=== PATIENT | female | born 1945 | race Caucasian/White ===

== ENCOUNTER → 2016-08-01 | Outpatient (CLI) | payer MEDICARE, OTHER ==
[~2016-08-01] MED LIST: ALBUAER3 IN; AMITRIP PO; ASPI-264 OR; CETI10CA PO; DONE10TA17 PO; FLUT250M2 INH; LORA-205 PO; LORA10CA7 OR; MICOCRE VA; MONT10TA23 OR; OMEG1CAP10 PO; SERT-135 PO; VITA100T3 PO; [UNRECOGNIZED DRUG - OTHER]
== END | disposition home or self-care (01) ==
LOC: Rad HDHVI 14:14
PROVIDERS: ATTEND Internal Medicine Cardiovascular Disease
DX: R06.02 Shortness of breath (principal)
CPT/HCPCS: 71020

== ENCOUNTER → 2017-04-14 | Outpatient (CLI) | payer MEDICARE, OTHER | END | disposition home or self-care (01) | LOC: Rad HDHVI 10:58 | PROVIDERS: ATTEND Internal Medicine Cardiovascular Disease | DX: I10 Essential (primary) hypertension (principal); J44.9 Chronic obstructive pulmonary disease, unspecified | CPT/HCPCS: 93306 ==

== ENCOUNTER → 2017-05-04 | Outpatient (CLI) | payer MEDICARE, OTHER ==
[~2017-05-04] VITALS: Ht 162.6 cm; Wt 93.0 kg
== END | disposition home or self-care (01) ==
LOC: Rad HDHVI 14:04
PROVIDERS: ATTEND Internal Medicine Cardiovascular Disease
DX: R07.89 Other chest pain (principal); R06.02 Shortness of breath
CPT/HCPCS: 78452; 93017; 96374; A9500

== ENCOUNTER → 2017-06-01 | Outpatient (CLI) | payer MEDICARE, OTHER ==
[2017-06-01 16:31] LABS: Urine Blood Negative /uL (Negative); Urine Specific Gravity 1.016 (1.001-1.035)
[2017-06-01 16:43] LABS: Basophils # (auto) 0 uL; Basophils % (auto) 0.3 % (0.0-2.0); Eosinophils # (auto) 0.1 uL; Eosinophils % (auto) 1.9 % (0.0-7.0); Hematocrit 43.1 % (36.0-46.0); Hemoglobin 14.8 g/dL (12.2-16.2); Lymphocytes % (auto) 17.9 % (10.0-50.0); Mean Corpuscular Hemoglobin 31.8 pg (28.0-32.0); Mean Corpuscular Hgb Conc. 34.3 g/dL (32.0-36.0); Mean Corpuscular Volume 92.9 fL (80.0-100.0); Monocytes # (auto) 0.5 uL; Monocytes % (auto) 8.2 % (0.0-12.0); Neutrophils # (auto) 4.2 uL; Neutrophils % (auto) 71.7 % (37.0-80.0); Nucleated Red Blood Cells % 0.2 %; Platelet Count (auto) 242 10^3/uL (140-450); Red Blood Cells 4.64 10^6/uL (4.0-5.20); Red Cell Distribution Width 13.2 % (11.8-14.3); White Blood Cell 5.8 10^3/uL (4.4-10.8)
[2017-06-01 16:45] LABS: Alanine Aminotransferase 27 U/L (13-56); Albumin 3.7 g/dL (3.4-5.0); Alkaline Phosphatase 109 U/L (45-117); Anion Gap 6 (5-15); Aspartate Aminotransferase 21 U/L (15-37); Bilirubin, Direct < 0.1 mg/dL (0-0.2); Bilirubin, Total 0.3 mg/dL (0.2-1.0); Blood Urea Nitrogen 16 mg/dL (7-18); Calcium 9.3 mg/dL (8.5-10.1); Carbon Dioxide 31 mmol/L (21-32); Chloride 104 mmol/L (98-107); Cholesterol 205 mg/dL (< 200); GFR African American 90 mL/min; GFR Non-African American 75 mL/min; Glucose 114 mg/dL (74-106); HDL Cholesterol 52 mg/dL (40-59); LDL Cholesterol 129 mg/dL (< 100); Potassium 3.7 mmol/L (3.5-5.1); Sodium 141 mmol/L (136-145); Total Protein 7.6 g/dL (6.4-8.2); Triglycerides 117 mg/dL (< 150)
== END | disposition home or self-care (01) ==
LOC: LAB 13:09
PROVIDERS: ATTEND Internal Medicine Cardiovascular Disease
DX: E78.00 Pure hypercholesterolemia, unspecified (principal); D64.9 Anemia, unspecified; I10 Essential (primary) hypertension; E11.9 Type 2 diabetes mellitus without complications; E03.9 Hypothyroidism, unspecified; E55.9 Vitamin D deficiency, unspecified; K74.1 Hepatic sclerosis; N39.0 Urinary tract infection, site not specified
CPT/HCPCS: 36415; 80048; 80061; 80076; 81003; 82306; 83036; 84443; 85025

== ENCOUNTER 2017-11-08 11:38 | Inpatient (IN) | payer MEDICARE, OTHER ==
[~2017-11-08] VITALS: Ht 170.2 cm; Wt 98.8 kg
[~2017-11-08 11:38] MED LIST changes: -LORA10CA7 OR; +LORA10CA7 PO
[2017-11-08 12:20] LABS: Basophils # (auto) 0 uL; Basophils % (auto) 0.3 % (0.0-2.0); Eosinophils # (auto) 0.1 uL; Eosinophils % (auto) 2.2 % (0.0-7.0); Hematocrit 41.8 % (36.0-46.0); Lymphocytes # (auto) 1.5 uL; Lymphocytes % (auto) 31.1 % (10.0-50.0); Mean Corpuscular Hemoglobin 31.3 pg (28.0-32.0); Mean Corpuscular Hgb Conc. 33.6 g/dL (32.0-36.0); Mean Corpuscular Volume 93.3 fL (80.0-100.0); Monocytes # (auto) 0.4 uL; Monocytes % (auto) 8.6 % (0.0-12.0); Neutrophils # (auto) 2.9 uL; Neutrophils % (auto) 57.8 % (37.0-80.0); Nucleated Red Blood Cells % 0.1 %; Platelet Count (auto) 242 10^3/uL (140-450); Red Blood Cells 4.49 10^6/uL (4.0-5.20); Red Cell Distribution Width 13.4 % (11.8-14.3)
[2017-11-08 12:43] LABS: Albumin 3.4 g/dL (3.4-5.0); Anion Gap 9 (5-15); BUN/Creatinine Ratio 21.2; Blood Urea Nitrogen 18 mg/dL (7-18); Calcium 8.2 mg/dL (8.5-10.1); Carbon Dioxide 26 mmol/L (21-32); Chloride 104 mmol/L (98-107); GFR African American 84 mL/min; GFR Non-African American 70 mL/min; Glucose 95 mg/dL (74-106); Potassium 3.3 mmol/L (3.5-5.1); Sodium 139 mmol/L (136-145)
[2017-11-08 12:48] LABS: Alanine Aminotransferase 24 U/L (13-56); Alkaline Phosphatase 77 U/L (45-117); Aspartate Aminotransferase 21 U/L (15-37); Bilirubin, Total 0.4 mg/dL (0.2-1.0)
[2017-11-08] MEDS ORDERED: IPRATROPIUM BROM 0.5 MG/2.5ML INH SOL HHN ONE (13:00)
[2017-11-08] MEDS ORDERED: ALBUTEROL SULF 2.5 MG/0.5ML(0.5%) NEB SOLN HHN ONE (13:00)
[2017-11-08] MEDS ORDERED: methylPREDNISolone SOD SUCC 125 MG/2 ML VL IV ONE (13:00)
[2017-11-08] MEDS: DOXYCYCLINE 100MG/250ML 250 ML IV SCH (14:00)
[2017-11-08] MEDS: SODIUM CHLORIDE 0.9% 1,000 ML IV SCH (14:48)
[2017-11-08] MEDS ORDERED: PROMETHAZINE HCL 25 MG/ML 1ML IV PRN (15:00)
[2017-11-08] MEDS ORDERED: LACTULOSE 20Gm/30ML SOLN PO PRN (15:00)
[2017-11-08] MEDS ORDERED: NITROGLYCERIN 0.4 MG SL TAB SL PRN (15:00)
[2017-11-08] MEDS ORDERED: ALBUTEROL SULF 2.5 MG/0.5ML(0.5%) NEB SOLN NEB PRN (15:00)
[2017-11-08] MEDS ORDERED: MORPHINE SULF INJ 2 MG/ML SYRINGE 1ML IV PRN ×2 (15:00)
[2017-11-08] MEDS ORDERED: LORazepam 0.5 MG TAB PO PRN (15:00)
[2017-11-08 17:31] VITALS: BP 115/66
[2017-11-08] MEDS ORDERED: methylPREDNISolone SOD SUCC 40 MG/ML VL IV SCH (18:00)
[2017-11-08] MEDS: IPRATROPIUM BROM 0.5 MG/2.5ML INH SOL NEB SCH (18:09)
[2017-11-08] MEDS: BUDESONIDE (INHALATION) 0.5 MG/2 ML NEB NEB SCH (18:09)
[2017-11-08] MEDS: ALBUTEROL SULF 2.5 MG/0.5ML(0.5%) NEB SOLN NEB SCH (18:09)
[2017-11-08] MEDS: HYDROcodone-ACET 5/325MG TAB PO PRN (18:59)
[2017-11-08] MEDS: MONTELUKAST SODIUM 10 MG TAB PO SCH (21:32)
[2017-11-08] MEDS: LORazepam 0.5 MG TAB PO PRN (21:33)
[2017-11-08 21:40] VITALS: BP 142/90
[2017-11-08 22:00] VITALS: BP 142/90
[2017-11-08] MEDS: TEMAZEPAM 15 MG CAP PO PRN (22:39)
[2017-11-08] MEDS: AMITRIPTYLINE HCL 25 MG TAB PO SCH (22:39)
[2017-11-09 00:09] LABS: Urine Bacteria NONE SEEN /hpf (None Seen); Urine Blood Negative /uL (Negative); Urine Mucus FEW (None Seen); Urine Specific Gravity 1.023 (1.001-1.035); Urine WBC <1 /hpf (0 - 5)
[2017-11-09] MEDS ORDERED: OMEG100078 PO ×2 (01:25→04:56)
[2017-11-09] MEDS ORDERED: OME20T PO (01:25)
[2017-11-09] MEDS ORDERED: DILT60TA27 PO (01:25)
[2017-11-09] MEDS: DOXYCYCLINE 100MG/250ML 250 ML IV SCH ×2 (02:43→14:56)
[2017-11-09] MEDS: SODIUM CHLORIDE 0.9% 1,000 ML IV SCH ×2 (04:08→14:56)
[2017-11-09] MEDS ORDERED: CARI-277 PO (04:51)
[2017-11-09] MEDS ORDERED: MULTCAP45 PO (04:56)
[2017-11-09] MEDS ORDERED: ASPI81TA27 PO (04:56)
[2017-11-09] MEDS ORDERED: VITA400T4 PO (04:56)
[2017-11-09 05:00] VITALS: BP 121/70
[2017-11-09] MEDS ORDERED: FLUT250M2 INH (05:02)
[2017-11-09] MEDS ORDERED: IBU600T PO (05:02)
[2017-11-09] MEDS ORDERED: BELLELX2 PO (05:02)
[2017-11-09] MEDS ORDERED: RIZA10TA24 OR (05:02)
[2017-11-09] MEDS ORDERED: PROM25TA5 PO (05:02)
[2017-11-09] MEDS ORDERED: TEMA30CA PO (05:02)
[2017-11-09] MEDS: ACETAMINOPHEN 500 MG TAB PO PRN (05:45)
[2017-11-09 06:18] LABS: Cholesterol 177 mg/dL (< 200); HDL Cholesterol 48 mg/dL (40-59); LDL Cholesterol 116 mg/dL (< 100); Triglycerides 31 mg/dL (< 150)
[2017-11-09] MEDS: ALBUTEROL SULF 2.5 MG/0.5ML(0.5%) NEB SOLN NEB SCH ×4 (06:21→18:33)
[2017-11-09] MEDS: IPRATROPIUM BROM 0.5 MG/2.5ML INH SOL NEB SCH ×4 (06:21→18:34)
[2017-11-09] MEDS: BUDESONIDE (INHALATION) 0.5 MG/2 ML NEB NEB SCH ×2 (06:22→18:34)
[2017-11-09] MEDS: LORATADINE 10 MG TAB PO SCH (06:52)
[2017-11-09] MEDS: HYDROcodone-ACET 5/325MG TAB PO PRN ×2 (07:00→13:40)
[2017-11-09 09:08] VITALS: BP 125/73
[2017-11-09] MEDS: SERTRALINE HCL 50 MG TAB PO SCH (10:00)
[2017-11-09] MEDS: ENOXAPARIN SOD 40 MG/0.4 ML SYRINGE SC SCH (10:00)
[2017-11-09] MEDS: PANTOPRAZOLE 40 MG TAB PO SCH (10:00)
[2017-11-09 13:00] VITALS: BP 109/74
[2017-11-09] MEDS: LORazepam 0.5 MG TAB PO PRN ×2 (13:40→22:05)
[2017-11-09 17:33] VITALS: BP 117/69
[2017-11-09 21:47] VITALS: BP 110/65
[2017-11-09] MEDS: guaiFENesin-CODEINE LIQUID 5 ML UD PO PRN (22:04)
[2017-11-09] MEDS: DONEPEZIL HYDROCHLORIDE 5 MG TAB PO SCH (22:05)
[2017-11-09] MEDS: MONTELUKAST SODIUM 10 MG TAB PO SCH (22:05)
[2017-11-09] MEDS: AMITRIPTYLINE HCL 25 MG TAB PO SCH (22:06)
[2017-11-09] MEDS: TEMAZEPAM 15 MG CAP PO PRN (22:07)
[2017-11-10] MEDS: DOXYCYCLINE 100MG/250ML 250 ML IV SCH ×2 (03:00→18:15)
[2017-11-10 05:20] VITALS: BP 113/56
[2017-11-10] MEDS: IPRATROPIUM BROM 0.5 MG/2.5ML INH SOL NEB SCH ×5 (06:00→23:55)
[2017-11-10] MEDS: ALBUTEROL SULF 2.5 MG/0.5ML(0.5%) NEB SOLN NEB SCH ×5 (06:00→23:55)
[2017-11-10] MEDS: BUDESONIDE (INHALATION) 0.5 MG/2 ML NEB NEB SCH ×2 (06:10→19:29)
[2017-11-10] MEDS: SODIUM CHLORIDE 0.9% 1,000 ML IV SCH ×2 (06:57→21:37)
[2017-11-10] MEDS: LORATADINE 10 MG TAB PO SCH (07:37)
[2017-11-10 08:00] VITALS: BP 122/64
[2017-11-10 09:00] VITALS: BP 122/64
[2017-11-10] MEDS: SERTRALINE HCL 50 MG TAB PO SCH (10:40)
[2017-11-10] MEDS: PANTOPRAZOLE 40 MG TAB PO SCH (10:40)
[2017-11-10] MEDS: ENOXAPARIN SOD 40 MG/0.4 ML SYRINGE SC SCH (10:43)
[2017-11-10 13:00] VITALS: BP 123/65
[2017-11-10 17:00] VITALS: BP 101/56
[2017-11-10] MEDS: AMITRIPTYLINE HCL 25 MG TAB PO SCH (21:39)
[2017-11-10] MEDS: DONEPEZIL HYDROCHLORIDE 5 MG TAB PO SCH (21:39)
[2017-11-10] MEDS: MONTELUKAST SODIUM 10 MG TAB PO SCH (21:39)
[2017-11-10 21:42] VITALS: BP 111/55
[2017-11-10] MEDS: TEMAZEPAM 15 MG CAP PO PRN (22:46)
[2017-11-11 05:05] VITALS: BP 125/60
[2017-11-11] MEDS: LORATADINE 10 MG TAB PO SCH (06:10)
[2017-11-11] MEDS: DOXYCYCLINE 100MG/250ML 250 ML IV SCH ×2 (06:11→19:48)
[2017-11-11] MEDS: BUDESONIDE (INHALATION) 0.5 MG/2 ML NEB NEB SCH ×2 (07:13→20:08)
[2017-11-11] MEDS: ALBUTEROL SULF 2.5 MG/0.5ML(0.5%) NEB SOLN NEB SCH ×3 (07:13→20:07)
[2017-11-11] MEDS: IPRATROPIUM BROM 0.5 MG/2.5ML INH SOL NEB SCH ×3 (07:13→20:08)
[2017-11-11 08:00] VITALS: BP 127/60
[2017-11-11 09:00] VITALS: BP 127/60
[2017-11-11] MEDS: SODIUM CHLORIDE 0.9% 1,000 ML IV SCH ×2 (09:28→22:48)
[2017-11-11] MEDS: PANTOPRAZOLE 40 MG TAB PO SCH (10:27)
[2017-11-11] MEDS: SERTRALINE HCL 50 MG TAB PO SCH (10:28)
[2017-11-11] MEDS: ENOXAPARIN SOD 40 MG/0.4 ML SYRINGE SC SCH (10:29)
[2017-11-11] MEDS: guaiFENesin-CODEINE LIQUID 5 ML UD PO PRN (10:30)
[2017-11-11] MEDS: HYDROcodone-ACET 5/325MG TAB PO PRN (10:51)
[2017-11-11] MEDS: LORazepam 0.5 MG TAB PO PRN (10:51)
[2017-11-11 13:00] VITALS: BP 131/77
[2017-11-11] MEDS: ACETAMINOPHEN 500 MG TAB PO PRN (19:53)
[2017-11-11 21:52] VITALS: BP 134/84
[2017-11-11] MEDS: DONEPEZIL HYDROCHLORIDE 5 MG TAB PO SCH (22:27)
[2017-11-11] MEDS: AMITRIPTYLINE HCL 25 MG TAB PO SCH (22:28)
[2017-11-11] MEDS: MONTELUKAST SODIUM 10 MG TAB PO SCH (22:28)
[2017-11-11] MEDS: TEMAZEPAM 15 MG CAP PO PRN (22:28)
[2017-11-12] VITALS (7 sets, daily range): BP systolic 103–138; BP diastolic 59–90
[2017-11-12] MEDS: LORATADINE 10 MG TAB PO SCH (06:21)
[2017-11-12] MEDS: SODIUM CHLORIDE 0.9% 1,000 ML IV SCH (06:21)
[2017-11-12] MEDS: DOXYCYCLINE 100MG/250ML 250 ML IV SCH ×2 (06:21→18:17)
[2017-11-12] MEDS: BUDESONIDE (INHALATION) 0.5 MG/2 ML NEB NEB SCH ×2 (07:11→19:31)
[2017-11-12] MEDS: IPRATROPIUM BROM 0.5 MG/2.5ML INH SOL NEB SCH ×5 (07:27→22:34)
[2017-11-12] MEDS: ALBUTEROL SULF 2.5 MG/0.5ML(0.5%) NEB SOLN NEB SCH ×5 (07:27→22:34)
[2017-11-12] MEDS: cefTRIAXone 1GM/10ml IVPUSH 10 ML IV SCH (09:27)
[2017-11-12] MEDS: PANTOPRAZOLE 40 MG TAB PO SCH (09:30)
[2017-11-12] MEDS: SERTRALINE HCL 50 MG TAB PO SCH (09:30)
[2017-11-12] MEDS: ENOXAPARIN SOD 40 MG/0.4 ML SYRINGE SC SCH (09:30)
[2017-11-12] MEDS: ACETAMINOPHEN 500 MG TAB PO PRN (09:57)
[2017-11-12] MEDS: LORazepam 0.5 MG TAB PO PRN (09:58)
[2017-11-12] MEDS: AMITRIPTYLINE HCL 25 MG TAB PO SCH (21:25)
[2017-11-12] MEDS: MONTELUKAST SODIUM 10 MG TAB PO SCH (21:26)
[2017-11-12] MEDS: DONEPEZIL HYDROCHLORIDE 5 MG TAB PO SCH (21:26)
[2017-11-12] MEDS: TEMAZEPAM 15 MG CAP PO PRN (21:28)
[2017-11-12] MEDS: guaiFENesin-CODEINE LIQUID 5 ML UD PO PRN (21:28)
[2017-11-13] MEDS: SODIUM CHLORIDE 0.9% 1,000 ML IV SCH ×2 (01:28→14:48)
[2017-11-13 05:03] VITALS: BP 114/62
[2017-11-13] MEDS: DOXYCYCLINE 100MG/250ML 250 ML IV SCH (06:17)
[2017-11-13] MEDS: LORATADINE 10 MG TAB PO SCH (06:17)
[2017-11-13] MEDS: IPRATROPIUM BROM 0.5 MG/2.5ML INH SOL NEB SCH ×2 (07:11→12:13)
[2017-11-13] MEDS: ALBUTEROL SULF 2.5 MG/0.5ML(0.5%) NEB SOLN NEB SCH ×2 (07:11→12:13)
[2017-11-13 07:27] VITALS: BP 124/93
[2017-11-13] MEDS: LORazepam 0.5 MG TAB PO PRN ×2 (07:31→14:54)
[2017-11-13] MEDS: guaiFENesin-CODEINE LIQUID 5 ML UD PO PRN ×2 (07:31→14:54)
[2017-11-13] MEDS: ACETAMINOPHEN 500 MG TAB PO PRN (07:31)
[2017-11-13] MEDS: cefTRIAXone 1GM/10ml IVPUSH 10 ML IV SCH (09:04)
[2017-11-13] MEDS: ENOXAPARIN SOD 40 MG/0.4 ML SYRINGE SC SCH (09:31)
[2017-11-13] MEDS: PANTOPRAZOLE 40 MG TAB PO SCH (09:31)
[2017-11-13] MEDS: SERTRALINE HCL 50 MG TAB PO SCH (09:32)
[2017-11-13 11:52] VITALS: BP 126/75
== END 2017-11-13 16:00 | disposition home or self-care (01) | DRG 177 ==
LOC: EDBD 11:38 → ER 11:38 → TELE 11:39 → TELE-WESTW 21:35 → WEST WING 11-09 16:56
PROVIDERS: ADMIT Internal Medicine; ATTEND Internal Medicine Cardiovascular Disease
DX: J15.6 Pneumonia due to other Gram-negative bacteria (principal); J96.90 Respiratory failure, unspecified, unspecified whether with hypoxia or hypercapnia; J45.41 Moderate persistent asthma with (acute) exacerbation; E87.6 Hypokalemia; E78.5 Hyperlipidemia, unspecified; Z82.49 Family history of ischemic heart disease and other diseases of the circulatory system; I10 Essential (primary) hypertension; K57.90 Diverticulosis of intestine, part unspecified, without perforation or abscess without bleeding; F41.9 Anxiety disorder, unspecified; F03.90 Unspecified dementia, unspecified severity, without behavioral disturbance, psychotic disturbance, mood disturbance, and anxiety; Z90.710 Acquired absence of both cervix and uterus; Z90.49 Acquired absence of other specified parts of digestive tract; Z88.0 Allergy status to penicillin; Z88.2 Allergy status to sulfonamides; Z88.8 Allergy status to other drugs, medicaments and biological substances
CPT/HCPCS: 36415; 71045; 80053; 80061; 81001; 82550; 83605; 83735; 83880; 84484; 85025; 85379; 85652; 87040; 87070; 87077; 87186; 87205; 93005; 94640; 94761; 96374; 96375; J0696; J3490

== ENCOUNTER → 2017-11-25 | Outpatient (CLI) | payer MEDICARE, OTHER ==
[~2017-11-25] MED LIST changes: -ASPI-264 OR; +ASPI81TA27 PO; +BELLELX2 PO; +CARI-277 PO; -CETI10CA PO; +DILT60TA27 PO; +IBU600T PO; -MICOCRE VA; +MULTCAP45 PO; +OME20T PO; +OMEG100078 PO; -OMEG1CAP10 PO; +PROM25TA5 PO; +RIZA10TA24 OR; +TEMA30CA PO; -VITA100T3 PO; +VITA400T4 PO; -[UNRECOGNIZED DRUG - OTHER]
== END | disposition home or self-care (01) ==
LOC: Rad HDHVI 12:45
PROVIDERS: ATTEND Internal Medicine Cardiovascular Disease
DX: J44.9 Chronic obstructive pulmonary disease, unspecified (principal); J45.909 Unspecified asthma, uncomplicated
CPT/HCPCS: 71046

== ENCOUNTER → 2018-07-05 | Outpatient (CLI) | payer MEDICARE, OTHER | END | disposition home or self-care (01) | LOC: Rad HDHVI 15:51 | PROVIDERS: ATTEND Internal Medicine Cardiovascular Disease | DX: M25.462 Effusion, left knee (principal); M25.762 Osteophyte, left knee; I70.0 Atherosclerosis of aorta; J40 Bronchitis, not specified as acute or chronic; M46.00 Spinal enthesopathy, site unspecified | CPT/HCPCS: 71046; 73562 ==

== ENCOUNTER → 2018-07-12 | Outpatient (CLI) | payer MEDICARE, OTHER | END | disposition home or self-care (01) | LOC: Rad HDHVI 12:32 | PROVIDERS: ATTEND Internal Medicine Cardiovascular Disease | DX: I08.2 Rheumatic disorders of both aortic and tricuspid valves (principal); I11.9 Hypertensive heart disease without heart failure; J44.9 Chronic obstructive pulmonary disease, unspecified; I27.20 Pulmonary hypertension, unspecified | CPT/HCPCS: 93306 ==

== ENCOUNTER → 2019-03-18 | Outpatient (CLI) | payer MEDICARE, OTHER ==
[~2019-03-18] MED LIST changes: +ASPI-404 PO; -ASPI81TA27 PO; +BACITRACIN TOP OINT 1 UD PKG TOP ONE; -BELLELX2 PO; +PHEN1ELX6 PO; -SERT-135 PO; +SERT100T PO
[2019-03-18 11:40] VITALS: BP 140/78
[2019-03-18 12:05] VITALS: BP 140/76
--- NOTE | 2019-03-18 12:05 | NUR ---
[facility] Discharge Instructions See e-MAR for any mediations given with this visit. Patient education given on disease process. Patient verbalized understanding. Previous labs reviewed. Patient discharged in stable condition with after care instructions and follow up appointment. NOTE STERI STRIPS AND MEDICATION APPLIED TO SKIN TEAR ON LH, PATIENT EDUCATION PROVIDED.
== END | disposition home or self-care (01) ==
LOC: CHF HDHVI 11:36
PROVIDERS: ATTEND Internal Medicine Cardiovascular Disease
DX: S61.412A Laceration without foreign body of left hand, initial encounter (principal); I50.9 Heart failure, unspecified; X58.XXXA Exposure to other specified factors, initial encounter; Y93.89 Activity, other specified; Y92.89 Other specified places as the place of occurrence of the external cause; Y99.8 Other external cause status
CPT/HCPCS: G0463

== ENCOUNTER → 2019-10-24 | Outpatient (CLI) | payer MEDICARE, OTHER ==
[~2019-10-24] MED LIST changes: -BACITRACIN TOP OINT 1 UD PKG TOP ONE; -RIZA10TA24 OR; +RIZA10TA50 OR
== END | disposition home or self-care (01) ==
LOC: Rad HDHVI 11:36
PROVIDERS: ATTEND Internal Medicine Cardiovascular Disease
DX: M15.9 Polyosteoarthritis, unspecified (principal); M79.642 Pain in left hand
CPT/HCPCS: 73130

== ENCOUNTER → 2020-07-04 | Outpatient (CLI) | payer MEDICARE, OTHER ==
[~2020-07-04] MED LIST changes: +AMIT25TA11 PO; -AMITRIP PO; -ASPI-404 PO; +ASPI-543 PO; +DILT60TA PO; -DILT60TA27 PO; -DONE10TA17 PO; +DONE10TA5 PO; -IBU600T PO; +IBUP600T28 PO
== END | disposition home or self-care (01) ==
LOC: Rad HDHVI 15:02
PROVIDERS: ATTEND Internal Medicine Cardiovascular Disease
DX: I08.2 Rheumatic disorders of both aortic and tricuspid valves (principal); I10 Essential (primary) hypertension; R06.02 Shortness of breath
CPT/HCPCS: 93306

== ENCOUNTER 2021-10-24 22:34 | Inpatient (IN) | payer MEDICARE, OTHER ==
[~2021-10-24] VITALS: Ht 167.6 cm; Wt 100.7 kg
[2021-10-24] MEDS ORDERED: ALBUTEROL SULF 2.5 MG/0.5ML(0.5%) NEB SOLN NEB ONE (22:45)
[2021-10-24] MEDS ORDERED: methylPREDNISolone SOD SUCC 125 MG/2 ML VL IV ONE (22:45)
[2021-10-24] MEDS ORDERED: IPRATROPIUM BROM 0.5 MG/2.5ML INH SOL NEB ONE (22:45)
[2021-10-24 23:27] LABS: Basophils # (auto) 0.1 10 ^3/uL (0-0.2); Basophils % (auto) 0.5 % (0.0-2.0); Eosinophils # (auto) 0 10 ^3/uL (0-0.8); Hematocrit 36.6 % (36.0-46.0); Hemoglobin 11.8 g/dL (12.2-16.2); Lymphocytes % (auto) 5.8 % (10.0-50.0); Mean Corpuscular Hemoglobin 28.5 pg (28.0-32.0); Mean Corpuscular Hgb Conc. 32.3 g/dL (32.0-36.0); Mean Corpuscular Volume 88.3 fL (80.0-100.0); Monocytes # (auto) 0.7 10 ^3/uL (0-1.3); Monocytes % (auto) 3.9 % (0.0-12.0); Neutrophils # (auto) 15.1 10 ^3/uL (1.6-8.6); Neutrophils % (auto) 89.8 % (37.0-80.0); Red Blood Cells 4.14 10^6/uL (4.0-5.20); Red Cell Distribution Width 13.6 % (11.8-14.3); White Blood Cell 16.8 10^3/uL (4.4-10.8)
[2021-10-24 23:46] LABS: Albumin 2.6 g/dL (3.4-5.0); BUN/Creatinine Ratio 24.1; Calcium 9.5 mg/dL (8.5-10.1); Potassium 3.9 mmol/L (3.5-5.1)
[2021-10-24 23:49] LABS: Bilirubin, Total 0.5 mg/dL (0.2-1.0); Total Protein 6.6 g/dL (6.4-8.2)
[2021-10-25] VITALS (9 sets, daily range): BP systolic 115–134; BP diastolic 52–72
[2021-10-25] MEDS ORDERED: ALBUTEROL SULF 2.5 MG/0.5ML(0.5%) NEB SOLN NEB ONE (00:30)
[2021-10-25 02:04] LABS: Urine Bacteria NONE SEEN /hpf (None Seen); Urine Blood Negative /uL (Negative); Urine Mucus FEW (None Seen); Urine Specific Gravity 1.027 (1.001-1.035); Urine WBC <1 /hpf (0 - 5)
[2021-10-25] MEDS ORDERED: HYDROcodone-ACET 5/325MG TAB PO PRN (06:15)
[2021-10-25] MEDS ORDERED: IPRATROPIUM BROM 0.5 MG/2.5ML INH SOL NEB PRN (06:15)
[2021-10-25] MEDS ORDERED: ALBUTEROL SULF 2.5 MG/0.5ML(0.5%) NEB SOLN NEB PRN (06:15)
[2021-10-25] MEDS ORDERED: DOCUSATE SOD 100 MG CAP PO PRN (06:15)
[2021-10-25] MEDS ORDERED: ONDANSETRON HCL 4 MG/2 ML VIAL IV PRN (06:15)
[2021-10-25] MEDS ORDERED: FUROSEMIDE 20 MG/2 ML VIAL IV ONE ×2 (06:15→10:45)
[2021-10-25] MEDS ORDERED: NITROGLYCERIN 0.4 MG SL TAB SL PRN (06:45)
[2021-10-25] MEDS ORDERED: ALBUMIN 25% 100 ML IV ONE (06:45)
[2021-10-25] MEDS ORDERED: MORPHINE SULFATE INJ 2 MG/ml SYRG IV PRN (06:45)
[2021-10-25 07:14] LABS: Basophils # (auto) 0 10 ^3/uL (0-0.2); Basophils % (auto) 0.1 % (0.0-2.0); Eosinophils # (auto) 0 10 ^3/uL (0-0.8); Hematocrit 34.6 % (36.0-46.0); Hemoglobin 11.3 g/dL (12.2-16.2); Lymphocytes # (auto) 0.5 10 ^3/uL (0.4-5.4); Lymphocytes % (auto) 3.9 % (10.0-50.0); Mean Corpuscular Hemoglobin 28.9 pg (28.0-32.0); Mean Corpuscular Hgb Conc. 32.8 g/dL (32.0-36.0); Mean Corpuscular Volume 88.2 fL (80.0-100.0); Monocytes # (auto) 0.3 10 ^3/uL (0-1.3); Monocytes % (auto) 1.9 % (0.0-12.0); Neutrophils # (auto) 13.3 10 ^3/uL (1.6-8.6); Neutrophils % (auto) 94.1 % (37.0-80.0); Red Blood Cells 3.92 10^6/uL (4.0-5.20); Red Cell Distribution Width 13.5 % (11.8-14.3); White Blood Cell 14.1 10^3/uL (4.4-10.8)
[2021-10-25 07:36] LABS: Albumin 2.4 g/dL (3.4-5.0); Calcium 9.5 mg/dL (8.5-10.1)
[2021-10-25 07:38] LABS: BUN/Creatinine Ratio 24.4
[2021-10-25 07:41] LABS: Bilirubin, Total 0.5 mg/dL (0.2-1.0); Total Protein 6.5 g/dL (6.4-8.2)
[2021-10-25] MEDS ORDERED: ENOXAPARIN SOD 40 MG/0.4 ML SYRINGE SC SCH (10:00)
[2021-10-25] MEDS ORDERED: FUROSEMIDE 20 MG/2 ML VIAL IV SCH (10:00)
[2021-10-25] MEDS ORDERED: FAMOTIDINE (10MG/ML) 2ML VL IV SCH (10:00)
[2021-10-25] MEDS: levoFLOXacin 500MG 100 ML IV SCH (12:35)
[2021-10-25] MEDS: ASPirin 81 mg TAB PO SCH (12:36)
[2021-10-25] MEDS: SODIUM CHLOR 0.9% PF (SALINE LOCK) 10ML VIAL/SYR IV SCH ×2 (13:38→22:16)
[2021-10-25] MEDS ORDERED: methylPREDNISolone SOD SUCC 40 MG/ML VL IV SCH (14:00)
[2021-10-25] MEDS ORDERED: DONEPEZIL HYDROCHLORIDE 5 MG TAB PO ONE (22:00)
[2021-10-25] MEDS ORDERED: AMITRIPTYLINE HCL 25 MG TAB PO ONE (22:00)
[2021-10-25] MEDS ORDERED: MEMANTINE HCL 5 MG TAB PO ONE (22:00)
[2021-10-25] MEDS: ATORVASTATIN 20 MG TAB PO SCH (22:18)
[2021-10-25] MEDS: MONTELUKAST SODIUM 10 MG TAB PO SCH (22:20)
[2021-10-26 06:12] LABS: Basophils # (auto) 0 10 ^3/uL (0-0.2); Basophils % (auto) 0.1 % (0.0-2.0); Eosinophils # (auto) 0 10 ^3/uL (0-0.8); Hematocrit 33.1 % (36.0-46.0); Hemoglobin 11.1 g/dL (12.2-16.2); Lymphocytes % (auto) 7.1 % (10.0-50.0); Mean Corpuscular Hemoglobin 29.7 pg (28.0-32.0); Mean Corpuscular Hgb Conc. 33.7 g/dL (32.0-36.0); Mean Corpuscular Volume 88.1 fL (80.0-100.0); Monocytes % (auto) 7.3 % (0.0-12.0); Neutrophils # (auto) 11.8 10 ^3/uL (1.6-8.6); Neutrophils % (auto) 85.5 % (37.0-80.0); Red Blood Cells 3.75 10^6/uL (4.0-5.20); Red Cell Distribution Width 13.8 % (11.8-14.3); White Blood Cell 13.8 10^3/uL (4.4-10.8)
[2021-10-26] MEDS: SODIUM CHLOR 0.9% PF (SALINE LOCK) 10ML VIAL/SYR IV SCH ×3 (06:16→21:41)
[2021-10-26 06:24] LABS: Albumin 2.5 g/dL (3.4-5.0); Calcium 8.7 mg/dL (8.5-10.1); Potassium 3.5 mmol/L (3.5-5.1)
[2021-10-26 06:26] LABS: BUN/Creatinine Ratio 35.4
[2021-10-26 06:29] LABS: Bilirubin, Total 0.3 mg/dL (0.2-1.0)
[2021-10-26 09:00] VITALS: BP 131/76
[2021-10-26] MEDS ORDERED: FUROSEMIDE 40 MG/4 ML VIAL IV SCH (10:00)
[2021-10-26] MEDS ORDERED: SERTRALINE HCL 50 MG TAB PO ONE (10:15)
[2021-10-26] MEDS ORDERED: DONETAB6 PO (10:26)
[2021-10-26] MEDS ORDERED: MEMA1TAB3 PO (10:26)
[2021-10-26] MEDS: levoFLOXacin 500MG 100 ML IV SCH (10:41)
[2021-10-26] MEDS: POTASSIUM CHL 10 Meq TABLET PO SCH (10:42)
[2021-10-26] MEDS: ASPirin 81 mg TAB PO SCH (10:42)
[2021-10-26] MEDS: PANTOPRAZOLE 40 MG TAB PO SCH (10:42)
[2021-10-26 12:55] VITALS: BP 126/69
[2021-10-26 16:38] VITALS: BP 115/63
[2021-10-26] MEDS: MEMANTINE HCL 5 MG TAB PO SCH (21:42)
[2021-10-26] MEDS: ATORVASTATIN 20 MG TAB PO SCH (21:42)
[2021-10-26] MEDS: DONEPEZIL HYDROCHLORIDE 5 MG TAB PO SCH (21:42)
[2021-10-26] MEDS: MONTELUKAST SODIUM 10 MG TAB PO SCH (21:43)
[2021-10-26] MEDS: AMITRIPTYLINE HCL 10 MG TAB PO SCH (21:49)
[2021-10-26 22:00] VITALS: BP 109/69
[2021-10-27 05:00] VITALS: BP 137/6
[2021-10-27 05:27] LABS: Basophils # (auto) 0.1 10 ^3/uL (0-0.2); Basophils % (auto) 0.5 % (0.0-2.0); Eosinophils # (auto) 0.2 10 ^3/uL (0-0.8); Eosinophils % (auto) 1.4 % (0.0-7.0); Hematocrit 36.4 % (36.0-46.0); Lymphocytes # (auto) 0.9 10 ^3/uL (0.4-5.4); Lymphocytes % (auto) 8.4 % (10.0-50.0); Mean Corpuscular Hemoglobin 28.8 pg (28.0-32.0); Mean Corpuscular Hgb Conc. 32.9 g/dL (32.0-36.0); Mean Corpuscular Volume 87.6 fL (80.0-100.0); Monocytes # (auto) 0.9 10 ^3/uL (0-1.3); Monocytes % (auto) 7.9 % (0.0-12.0); Neutrophils # (auto) 9.2 10 ^3/uL (1.6-8.6); Neutrophils % (auto) 81.8 % (37.0-80.0); Nucleated Red Blood Cells % 0.1 %; Red Blood Cells 4.15 10^6/uL (4.0-5.20); Red Cell Distribution Width 13.5 % (11.8-14.3); White Blood Cell 11.3 10^3/uL (4.4-10.8)
[2021-10-27 05:43] LABS: BUN/Creatinine Ratio 36.8; Calcium 8.5 mg/dL (8.5-10.1); Potassium 3.6 mmol/L (3.5-5.1)
[2021-10-27] MEDS: SODIUM CHLOR 0.9% PF (SALINE LOCK) 10ML VIAL/SYR IV SCH ×3 (06:42→21:31)
[2021-10-27] MEDS: ACETAMINOPHEN 325 MG TAB PO PRN (06:43)
[2021-10-27 09:00] VITALS: BP 124/69
[2021-10-27] MEDS: ASPirin 81 mg TAB PO SCH (10:06)
[2021-10-27] MEDS: levoFLOXacin 500MG 100 ML IV SCH (10:06)
[2021-10-27] MEDS: POTASSIUM CHL 10 Meq TABLET PO SCH (10:06)
[2021-10-27] MEDS: PANTOPRAZOLE 40 MG TAB PO SCH (10:07)
[2021-10-27] MEDS: FUROSEMIDE 40 MG TAB PO SCH (10:07)
[2021-10-27] MEDS: SERTRALINE HCL 50 MG TAB PO SCH (10:07)
[2021-10-27] MEDS: MEMANTINE HCL 5 MG TAB PO SCH ×2 (11:36→21:33)
[2021-10-27 13:00] VITALS: BP 124/78
[2021-10-27 17:00] VITALS: BP 108/69
[2021-10-27] MEDS: ATORVASTATIN 20 MG TAB PO SCH (21:32)
[2021-10-27] MEDS: DONEPEZIL HYDROCHLORIDE 5 MG TAB PO SCH (21:32)
[2021-10-27] MEDS: AMITRIPTYLINE HCL 10 MG TAB PO SCH (21:32)
[2021-10-27] MEDS: MONTELUKAST SODIUM 10 MG TAB PO SCH (21:33)
[2021-10-27 22:00] VITALS: BP 103/62
[2021-10-28 03:13] VITALS: BP 103/62
[2021-10-28 05:00] VITALS: BP 119/47
[2021-10-28] MEDS: SODIUM CHLOR 0.9% PF (SALINE LOCK) 10ML VIAL/SYR IV SCH ×2 (06:16→14:00)
[2021-10-28 06:24] LABS: Basophils # (auto) 0 10 ^3/uL (0-0.2); Basophils % (auto) 0.2 % (0.0-2.0); Eosinophils # (auto) 0.2 10 ^3/uL (0-0.8); Eosinophils % (auto) 2.3 % (0.0-7.0); Hematocrit 37.7 % (36.0-46.0); Hemoglobin 12.5 g/dL (12.2-16.2); Lymphocytes % (auto) 12.2 % (10.0-50.0); Mean Corpuscular Hgb Conc. 33.1 g/dL (32.0-36.0); Mean Corpuscular Volume 87.4 fL (80.0-100.0); Monocytes # (auto) 0.7 10 ^3/uL (0-1.3); Monocytes % (auto) 8.5 % (0.0-12.0); Neutrophils # (auto) 6.5 10 ^3/uL (1.6-8.6); Neutrophils % (auto) 76.8 % (37.0-80.0); Nucleated Red Blood Cells % 0.1 %; Red Blood Cells 4.31 10^6/uL (4.0-5.20); Red Cell Distribution Width 13.9 % (11.8-14.3); White Blood Cell 8.5 10^3/uL (4.4-10.8)
[2021-10-28 06:41] LABS: Potassium 3.4 mmol/L (3.5-5.1)
[2021-10-28 06:48] LABS: Albumin 2.3 g/dL (3.4-5.0); BUN/Creatinine Ratio 28.4; Bilirubin, Total 0.6 mg/dL (0.2-1.0); Calcium 8.5 mg/dL (8.5-10.1); Total Protein 5.9 g/dL (6.4-8.2)
[2021-10-28 08:00] VITALS: BP 119/48
[2021-10-28 09:00] VITALS: BP 116/59
[2021-10-28] MEDS: levoFLOXacin 500MG 100 ML IV SCH ×2 (09:42→10:00)
[2021-10-28] MEDS: ACETAMINOPHEN 325 MG TAB PO PRN (09:43)
[2021-10-28] MEDS: ASPirin 81 mg TAB PO SCH (09:43)
[2021-10-28] MEDS: POTASSIUM CHL 10 Meq TABLET PO SCH (09:44)
[2021-10-28] MEDS: SERTRALINE HCL 50 MG TAB PO SCH (09:44)
[2021-10-28] MEDS: MEMANTINE HCL 5 MG TAB PO SCH (09:45)
[2021-10-28] MEDS: PANTOPRAZOLE 40 MG TAB PO SCH (09:45)
[2021-10-28] MEDS ORDERED: POTASSIUM CHL 20 Meq TABLET PO ONE (10:00)
[2021-10-28] MEDS ORDERED: FURO1TAB33 PO (10:04)
[2021-10-28] MEDS ORDERED: LEVO500T31 PO (10:04)
[2021-10-28] MEDS ORDERED: POTA-167 PO (10:04)
[2021-10-28] MEDS: FUROSEMIDE 40 MG TAB PO SCH (10:14)
[2021-10-28 13:00] VITALS: BP 119/61
== END 2021-10-28 15:45 | disposition home or self-care (01) | DRG 871 ==
LOC: EDUNIT# 22:34 → EDBD 22:34 → ER 22:34 → TELE 10-25 06:36 → TELE-CENTR 10-25 08:30
PROVIDERS: ADMIT Nurse Practitioner Family; ATTEND Internal Medicine
PROC: 5A09357 Assistance with Respiratory Ventilation, Less than 24 Consecutive Hours, Continuous Positive Airway Pressure (ICD-10-PCS; principal; 2021-10-25)
DX: A41.9 Sepsis, unspecified organism (principal); I21.4 Non-ST elevation (NSTEMI) myocardial infarction; J96.00 Acute respiratory failure, unspecified whether with hypoxia or hypercapnia; I50.31 Acute diastolic (congestive) heart failure; J18.9 Pneumonia, unspecified organism; J44.1 Chronic obstructive pulmonary disease with (acute) exacerbation; J44.0 Chronic obstructive pulmonary disease with (acute) lower respiratory infection; E78.5 Hyperlipidemia, unspecified; E88.09 Other disorders of plasma-protein metabolism, not elsewhere classified; I48.91 Unspecified atrial fibrillation; D64.9 Anemia, unspecified; Z20.822 Contact with and (suspected) exposure to COVID-19; F03.90 Unspecified dementia, unspecified severity, without behavioral disturbance, psychotic disturbance, mood disturbance, and anxiety; E66.01 Morbid (severe) obesity due to excess calories; F32.A Depression, unspecified; F41.9 Anxiety disorder, unspecified; Z79.899 Other long term (current) drug therapy; Z90.710 Acquired absence of both cervix and uterus; Z82.49 Family history of ischemic heart disease and other diseases of the circulatory system; Z90.49 Acquired absence of other specified parts of digestive tract; Z88.1 Allergy status to other antibiotic agents; Z88.0 Allergy status to penicillin; Z88.2 Allergy status to sulfonamides; Z88.8 Allergy status to other drugs, medicaments and biological substances; Z68.37 Body mass index [BMI] 37.0-37.9, adult
CPT/HCPCS: 36415; 36600; 71045; 80048; 80053; 81001; 82805; 83036; 83880; 84484; 85025; 87040; 93005; 93306; 94640; 94660; 96374; 96375; 97110; 97116; 97163; 97530; G0378; J1956; P9047

== ENCOUNTER → 2021-11-04 | Outpatient (CLI) | payer MEDICARE, OTHER ==
[~2021-11-04] MED LIST changes: +DONETAB6 PO; +FURO1TAB33 PO; +LEVO500T31 PO; +MEMA1TAB3 PO; +POTA-167 PO
[2021-11-04 16:30] LABS: Calcium 8.9 mg/dL (8.5-10.1); Potassium 3.7 mmol/L (3.5-5.1)
== END | disposition home or self-care (01) ==
LOC: Rad HDHVI 15:24
PROVIDERS: ATTEND Internal Medicine Cardiovascular Disease
DX: I51.7 Cardiomegaly (principal); J18.9 Pneumonia, unspecified organism; I50.9 Heart failure, unspecified
CPT/HCPCS: 36415; 71046; 80048; 83880

== ENCOUNTER → 2021-11-19 | Outpatient (CLI) | payer MEDICARE, OTHER ==
[~2021-11-19] VITALS: Ht 165.1 cm; Wt 97.1 kg
[~2021-11-19] MED LIST changes: +ADENOSINE 82 MG in GIVE UN-DILUTED 0 ML IV ONE; +ADENOSINE 90 MG/30 ML INJ IV ONE
== END | disposition home or self-care (01) ==
LOC: Rad HDHVI 13:02
PROVIDERS: ATTEND Internal Medicine Cardiovascular Disease
DX: I42.0 Dilated cardiomyopathy (principal); I10 Essential (primary) hypertension; J44.9 Chronic obstructive pulmonary disease, unspecified; R06.02 Shortness of breath; R07.9 Chest pain, unspecified
CPT/HCPCS: 78452; 93005; 96374; 96375; A9500; J0153

== ENCOUNTER → 2022-01-15 | Outpatient (CLI) | payer MEDICARE, OTHER ==
[~2022-01-15] MED LIST changes: -ADENOSINE 82 MG in GIVE UN-DILUTED 0 ML IV ONE; -ADENOSINE 90 MG/30 ML INJ IV ONE
== END | disposition home or self-care (01) ==
LOC: Rad HDHVI 11:30
PROVIDERS: ATTEND Internal Medicine Cardiovascular Disease
DX: J81.1 Chronic pulmonary edema (principal); R06.02 Shortness of breath; I70.0 Atherosclerosis of aorta; M47.814 Spondylosis without myelopathy or radiculopathy, thoracic region
CPT/HCPCS: 71046

== ENCOUNTER → 2022-11-14 | Outpatient (CLI) | payer MEDICARE, OTHER ==
[~2022-11-14] MED LIST changes: -AMIT25TA11 PO; +AMIT25TA19 PO; -DONE10TA5 PO; +DONE10TA9 PO; +IBUP1TAB5 PO; -IBUP600T28 PO; +LORA10CA PO; -LORA10CA7 PO; +OMEG-20 PO; -OMEG100078 PO; -POTA-167 PO; +POTA-211 PO; +PROM25TA10 PO; -PROM25TA5 PO
== END | disposition home or self-care (01) ==
LOC: Rad HDHVI 13:37
PROVIDERS: ATTEND Internal Medicine Cardiovascular Disease
DX: R51.9 Headache, unspecified (principal)
CPT/HCPCS: 70450

== ENCOUNTER → 2024-08-29 | Outpatient (CLI) | payer MEDICARE, OTHER | END | disposition home or self-care (01) | LOC: Rad HDHVI 13:58 | PROVIDERS: ATTEND Internal Medicine Cardiovascular Disease | DX: I10 Essential (primary) hypertension (principal); R00.2 Palpitations | CPT/HCPCS: 93306 ==